=== PATIENT | female | born 1940 | race Two or more races ===

== ENCOUNTER 2022-08-27 13:58 | Emergency (ER) | payer OTHER ==
[2022-08-27 14:08] VITALS: TEMP 97.6; BMI 17.4
[2022-08-27] MEDS ORDERED: HYDROCHLOROTHIAZIDE 25 MG TABLET (FP) PO ONE (15:32)
[2022-08-27] MEDS ORDERED: HYDROCHLOROTHIAZIDE 25 MG TABLET (FP) ONE (15:37)
[2022-08-27] MEDS ORDERED: amLODIPine BESYLATE 5 MG TABLET (FP) PO ONE (15:40)
[2022-08-27] MEDS ORDERED: amLODIPine BESYLATE 5 MG TABLET (FP) ONE (15:59)
[2022-08-27 16:13] LABS: EPI CELLS 8 /uL (0-25.1); HYALINE CASTS 0 /uL (0-3.1); URINE APPEARANCE CLEAR; URINE BACTERIA 3 /uL (0-1359); URINE BILIRUBIN NEGATIVE (NEGATIVE); URINE COLOR YELLOW; URINE GLUCOSE (UA) NEGATIVE (NEGATIVE); URINE KETONE NEGATIVE (NEGATIVE); URINE LEUK ESTERASE TRACE (NEGATIVE); URINE NITRITE NEGATIVE (NEGATIVE); URINE PROTEIN NEGATIVE (NEGATIVE); URINE RBC 5 /uL (0-23.9); URINE UROBILINOGEN 0.2 mg/dL (0.2-1.0); URINE WBC 17 /uL (0-25.8)
[2022-08-27 16:55] LABS: BASO % 0.8 % (0-2.0); EOS % 4.6 % (0-4.5); HEMATOCRIT 37.5 % (32.4-45.2); HEMOGLOBIN 12.5 GM/dL (10.7-15.3); MCH 31.6 pg (25.7-33.7); MCHC 33.4 g/dl (32.0-36.0); MEAN CELL VOLUME 94.6 fl (80-96); MEAN PLT VOLUME 8.9 fl (7.5-11.1); NEUT % 66.6 % (42.8-82.8); PLATELET COUNT 286 10^3/uL (134-434); RBC 3.96 M/mm3 (3.60-5.2); RDW 14.5 % (11.6-15.6); WHITE BLOOD COUNT 5.7 K/mm3 (4.0-10.0)
[2022-08-27 17:15] LABS: POTASSIUM 4.2 mmol/L (3.5-5.1)
[2022-08-27 17:17] LABS: CALCIUM 9.3 mg/dL (8.5-10.1)
[2022-08-27 17:18] LABS: ALBUMIN 3.7 g/dl (3.4-5.0); BLOOD UREA NITROGEN 9.6 mg/dL (7-18)
[2022-08-27 17:21] LABS: CREATININE 0.6 mg/dL (0.55-1.3)
[2022-08-27 17:22] LABS: BILIRUBIN,TOTAL 0.4 mg/dL (0.2-1); TOT PROT 6.3 g/dl (6.4-8.2)
[2022-08-27 18:34] VITALS: BP 168/80; PULSE 74; RESP 20
== END 2022-08-27 18:34 | disposition home or self-care (01) ==
LOC: JER 13:58
DX: I10 Essential (primary) hypertension (principal)
CPT/HCPCS: 36415; 80053; 81003; 84443; 85025; 93005; 93010; 99284-25